=== PATIENT | male | born 1930 | race Caucasian/White ===

== ENCOUNTER → 2018-06-07 | Outpatient (CLI) | payer OTHER ==
[~2018-06-07] MED LIST: ATORVASTATIN TAB 20M; CIPROFLOXACIN500 M1 PO; FLEXERIL5 MG PO; LIPITOR20 MG PO; LO-DOSE ASPIRIN81 M1 PO; METRONIDAZOLE500 MG PO; NAPROSYN500 MG PO; RANITIDINE HCL150 MG
== END | disposition home or self-care (01) ==
LOC: CDC 11:35
DX: Z01.810 Encounter for preprocedural cardiovascular examination (principal); J38.3 Other diseases of vocal cords
CPT/HCPCS: 93000